=== PATIENT | female | born 1955 | race Caucasian/White ===

== ENCOUNTER 2016-12-01 07:20 | Inpatient (IN) | payer OTHER ==
[~2016-12-01] VITALS: Ht 154.9 cm; Wt 65.4 kg
--- NOTE | ~2016-12-01 | ER ---
PATIENT'S NAME: KACIE [facility] AGE: 61 Y [address] ROOM: [place] [address] LOCATION: GPCU ADMIT DATE: 12/01/2016 ER/Outpatient Report DISCHARGE DATE: FAMILY PHYSICIAN: Sylvia Rosenthal MD ATTENDING PHYSICIAN: YG PEREZ TIME OF ARRIVAL: 0720 hours. TIME OF EVALUATION: 0720 hours. CHIEF COMPLAINT: Chest pain. HISTORY OF PRESENT ILLNESS: The patient is a 61-year-old female who presents to the emergency department today with a chief complaint of chest pain. She reports it started at 6:30 this morning. She does have a history of stenting x2 in 2010 and has a history of high blood pressure as well. She reports that this pain started one hour prior to arrival. It is a squeezing-type pain. It lasted about 5 minutes and resolved with nitroglycerin. She also had one other short episode on her way to work. She does report it radiates to the back, but there is no ripping or tearing sensation. It is not sudden onset. No nausea or vomiting. No diaphoresis. No lightheadedness. No fevers or chills. She reports she had a heart cath in June which had a small blockage. PAST MEDICAL HISTORY: Hypertension, coronary artery disease, dyslipidemia, gastroesophageal reflux disease, depression, anxiety, insomnia, glucose intolerance, overactive bladder, and osteopenia. PAST SURGICAL HISTORY: Hysterectomy and cardiac stents. SOCIAL HISTORY: The patient quit smoking 5 months ago. Drinks alcohol 2 times a week. Denies any illicit drug use. ALLERGIES: NO KNOWN DRUG ALLERGIES. MEDICATIONS: Please see list. PATIENT'S NAME: KACIE [facility] AGE: 61 Y [address] ROOM: [place] [address] LOCATION: GPCU ADMIT DATE: 12/01/2016 ER/Outpatient Report DISCHARGE DATE: FAMILY PHYSICIAN: Sylvia Rosenthal MD ATTENDING PHYSICIAN: YG PEREZ REVIEW OF SYSTEMS: All systems are reviewed by myself and are negative with the exception of those discussed in the HPI and Past Medical History. PHYSICAL EXAMINATION: VITAL SIGNS: Weight 65.9 kg. Blood pressure 149/78, pulse 66, respiratory rate 16, temperature 97.5, and oxygen saturation 98% on room air. GENERAL: The patient is a 61-year-old female who appears stated age, in no acute distress. HEENT: Normocephalic, atraumatic. NECK: Supple. There is no nuchal rigidity. CARDIOVASCULAR: Regular rate and rhythm. LUNGS: Clear to auscultation bilaterally. No wheezes, rales, or rhonchi. ABDOMEN: Soft, nontender, and nondistended. No rebound, rigidity, or guarding. MUSCULOSKELETAL: The patient moves all 4 extremities. SKIN: Warm and dry. LABORATORY AND X-RAY DATA: Labs and x-rays are obtained. CBC is normal. EKG is obtained, is interpreted by myself at 0732 hours, shows sinus rhythm with a rate of 67, normal axis, normal interval. No ST elevation, ST depression, or T-wave inversions. Coags are normal. CMP is normal. Magnesium is normal. Cardiac enzymes are normal. Chest x-ray shows no acute process. Her heart catheterization from 2016 is reviewed by myself and did show mid focal 70% stenosis of LAD. Left circ was negative. RCA showed 20% to 30% distal to her previous stent. IMPRESSION: 1. Unstable angina. 2. Initial visit. EMERGENCY DEPARTMENT COURSE: The patient was brought back to the examination room. Seen and evaluated by myself. IV was established. Laboratory analysis and imaging were obtained as described above. The patient was given 324 mg of baby aspirin orally. She is chest pain-free now. I have discussed the results with the patient. We have contacted Dr. Perez with the Hospitalist Service. He does agree to accept the patient for further evaluation, treatment, and management. DISPOSITION: The patient is admitted under the care of the Hospitalist Service in stable condition. PATIENT'S NAME: KARLA HESTER [facility] AGE: 61 Y [address] ROOM: [place] [address] [facility]: 12/01/2016 ER/Outpatient Report DISCHARGE DATE: FAMILY PHYSICIAN: Sylvia Rosenthal MD ATTENDING PHYSICIAN: YG PEREZ DO KOLBY COOK/modl /[id number] d: 12/01/16 1349 t: 12/01/16 1640, OUTPATIENT REPORT
--- NOTE | ~2016-12-01 | DS ---
[facility] AGE[facility] 61 Y [address] ROOM: [place] [address] LOCATION: GPCU ADMIT DATE: 12/01/2016 Discharge Summary DISCHARGE DATE: 12/02/2016 FAMILY PHYSICIAN: Sylvia Rosenthal MD ATTENDING PHYSICIAN: Sahil Perez PRINCIPAL DIAGNOSES: 1. Unstable angina. 2. Coronary artery disease. 3. Essential hypertension. 4. Hyperlipidemia. 5. History of smoking. 6. Anxiety and depression. HOSPITAL COURSE: Please reference any of the admitting data to the history and physical as dictated by Dr. Dolores Jose. This 61-year-old female with a history of coronary artery disease, status post PCI, presented with chest pain. She was admitted into the Progressive Care Unit. She was given her aspirin, beta-flako, and statin medicines. Initial EKG showed normal sinus rhythm with no obvious ST-changes concerning for ischemia. Laboratory findings showed a negative set of cardiac enzymes. Cardiology consultation was obtained and was elected to undergo a heart catheterization. After risks and benefits were obtained and consents signed, the patient underwent a left and right coronary angiography via the groin approach. Findings included one- vessel coronary artery disease with a patent RCA stent. There was also a known mid-LAD lesion documented as a focal 40 stenosis, which looked comparatively better with previous angiography. Hemostasis was successfully obtained and recovered back in her room per the post heart catheterization orders without any complications. The patient was observed overnight without any further complications mobilizes any further symptoms of angina. Hemodynamically was stable and status at discharge was good. CONSULTING PROVIDERS: Dr. Jordan, [facility] Cardiology. PROCEDURE: A left and right heart catheterization via right groin approach by Dr. Jordan on December 01. PERTINENT LAB FINDINGS: 1. Initial set of cardiac enzymes were negative. 2. A CBC on 12/01/2016 showed a hemoglobin of 13.3, hematocrit of 40.2, and a platelet count of 257. White blood cells are 9.4. 3. Chemistry panel, follow up on 12/02/2016, showed a glucose of 101, BUN 15, creatinine 0.8, sodium 140, potassium of 4.2, chloride 108, CO2 of [facility] AGE: 61 Y [address] ROOM: [id number] [place] [id number] LOCATION: GPCU ADMIT DATE: 12/01/2016 Discharge Summary DISCHARGE DATE: 12/02/2016 FAMILY PHYSICIAN: Sylvia Rosenthal MD ATTENDING PHYSICIAN: Sahil Perez 24, and calcium of 8.6. Liver functions were within normal limits. A fasting lipid on 12/02/2016 showed a cholesterol of 187, triglycerides of 191, HDL 56, and LDL of 93. DISCHARGE MEDICATIONS: 1. Aspirin enteric-coated 81 mg p.o. everyday. 2. Atorvastatin 80 mg p.o. every night at bedtime. 3. Bupropion 300 mg p.o. everyday. 4. Calcium carbonate 1200 mg p.o. everyday. 5. Vitamin D3 2000 units p.o. everyday. 6. CoQ10 200 mg p.o. everyday. 7. Multivitamin 1 tablet p.o. everyday. 8. Celexa 20 mg p.o. everyday. 9. Imdur 60 mg p.o. everyday. 10. Metoprolol tartrate 25 mg p.o. twice daily. 11. Ranexa 500 mg p.o. everyday. 12. Protonix 40 mg p.o. everyday before breakfast. 13. Ditropan XL 10 mg p.o. everyday. 14. Chantix 1 mg p.o. twice daily. 15. Methylsulfonylmethane 1000 mg 1 tablet p.o. everyday. DISCHARGE INSTRUCTIONS: 1. The patient will be discharged to home. 2. Diet should be cardiac. 3. Activity should be groin precautions with no lifting of anything greater than 5 pounds for 1 week. There was a prescription written according to her work environment. She should maintain restrictions for 1 week following the catheterization. A return to work note was also instructed per Dr. Jordan of Cardiology. 4. The patient should follow up with Dr. Morrissey in 1 month. 5. The patient should have a followup with Dr. Sylvia Rosenthal for posthospitalization in the next 10 to 14 days. 6. The patient was given post heart catheterization education and instructions with pertinent recommendations do not lift anything greater than 5 pounds for 1 week. She was also given education on the cardiovascular benefits of smoking cessation. She has been smoke free for the last 5 months and continues to utilize Chantix as per her primary care provider. The above line of management was discussed with the patient and all questions were answered with statements of satisfaction. Total time arranging discharge was less than 30 minutes. WALTER NOVA APRN, APRN FOR DOLORES JOSE MD PATIENT'S NAME: KARLA HESTER [facility] AGE: 61 Y [address] ROOM: [place] [id number] [facility]: 12/01/2016 Discharge Summary DISCHARGE DATE: 12/02/2016 FAMILY PHYSICIAN: Sylvia Rosenthal MD ATTENDING PHYSICIAN: Sahil Perez /[id number] CC: MD Catalina Gabriel MD d: 12/03/16 0136 t: 12/06/16 1102, DISCHARGE SUMMARY
--- NOTE | ~2016-12-01 | CATH ---
Cardiac Diagnostic Report Demographics Patient Name KACIE Thompson Gender Female Date of 1955 Age 61 year(s) Patient Number [id number] Date of Study 12/01/2016 Visit Number [id number] Room Number [id number] [place] [id number] Ht 154.94 cm Wt 66 kg Referring Galo Minor MD Primary Physician Physician Performing [facility] Secondary Physician Physician Anupama RDZ Diagnostic [facility] Assisting Physician Physician Anupama RDZ Interventional Physician Email Campaign Specialist Physician Findings and Conclusions Diagnostic Findings and Conclusion 1. 1 vessel CAD - RCA stent patent. 2. Mid LAD lesion focal 40 stenosis (looks better compared with prior angiogram). Diagnostic Recommendations Continue medical treatment. Patient will be observed overnight. Patient has been instructed to not lift anything more than 5 pounds for 1 week. Aggressive medical therapy for coronary artery disease. Procedure Description The patient was brought to the diagnostic cardiac catheterization-EP laboratory in the fasting, non-sedated state. Informed consent was obtained in the written and verbal form after the risks and benefits were explained. The patient had no further questions and agreed to proceed. The planned puncture-incision site(s) were shaved and prepped with ChloraPrep and draped in the usual sterile manner. Conscious sedation, supplemental oxygen, and pain control medications were delivered by a registered nurse under physician guidance. Surface ECG rhythm, blood pressure measurement, and pulse oximetry were monitored throughout the procedure. Arterial access. The access site was infiltrated with lidocaine. The vessel was entered with the Seldinger technique. A sheath was advanced into the vessel and used for catheter placement. Selective left coronary angiography. A catheter was advanced into the left coronary vessel ostium under Fluoroscopic guidance. Contrast was injected by hand. Images were obtained in multiple projections. Selective right coronary angiography. A catheter was advanced into the right coronary vessel ostium under fluoroscopic guidance. Contrast was injected by hand. Images were obtained in multiple projections. Left heart catheterization. A catheter was advanced across the aortic valve to the left ventricle under fluoroscopic guidance. Resting hemodynamics were obtained. Arterial artery hemostasis was achieved. The patient was transferred to a regular nursing floor via cart accompanied by a nurse. The patient left the laboratory in stable condition. Diagnostic Cath Status: Urgent Procedure Procedure Type Diagnostic procedure:Angiography:, Coronary Angios w/[facility] Indications: Chest pain. The procedure was explained in detail to the patient. Risks, complications and alternative treatments were reviewed. Written consent was obtained. Medications Reviewed with Patient prior to Procedure. Angiographic Findings Dominance: Right Cardiac Arteries and Lesion Findings LMCA: Lesion on LMCA: Ostial.20% stenosis . LAD: Lesion on Mid LAD: 40% stenosis . LCx: Normal (0% Stenosis). RCA: Normal (0% Stenosis).Stent patent. Coronary Tree Procedure Data Procedure Date Date: 12/01/2016Start: 01:00 PMEnd: 01:46 PM Entry Locations - Retrograde Percutaneous access was performed through the Right Femoral artery (Primary location). A 6 Fr sheath was inserted. Hemostasis was successfully obtained using Manual Compression. Closure Comments: Pressure held to right groin by RT Funmilayo for 20 minutes.. Procedure Medications Order and Administration + + + +-------+ !Time !Medication !Dosage !Route ! + + + +-------+ !12/01/2016 01:00 PM !Fentanyl !50 mcg !I.V. ! + + + +-------+ !12/01/2016 01:01 PM !Versed !1 mg !I.V. ! + + + +-------+ !12/01/2016 01:10 PM !Oxygen !2 l/min !NC ! + + + +-------+ Devices Used - A5 Fr. BS JR 4 Diag. Catheterwas used for:Right coronary angiography. - A6 Fr. EBU 3.5 Guide Catheterwas used for:Left coronary angiography. - A5 Fr. BS Angled Pigtail Diag. Catheterwas used for:LV Pressures. Contrast Material - Isovue 38344 ml Fluoroscopy Time: Diagnostic: 3:42 minutes. Total: 3:42 minutes. Fluoroscopy Dose: Diagnostic: 356 mGy. Total: 356 mGy. Estimated Blood Loss: 10 ml. Medical History Performed Procedures and Imaging Results - No ACC stress or imaging studies were performed. Allergies - No known allergies. Risk Factors The patient risk factors include:prior PCI on 04/22/2011;peripheral arterial disease, hypertension, last creatinine: 0.8 mg/dl, creatinine clearance: 76.94 ml/min and Current/Recent(w/in 1 year) tobacco use. Admission Data Admission Date: 12/01/2016 Admission Time: 09:04 AM Admit Source: Emergency department Insurance Payors: Private health insurance. Admission Medications + +------+-------+ + + + + !Medication !Dosage!Times !Last !Last !Administered !Comments ! ! ! !Per Day!Delivery !Delivery ! ! ! ! ! ! !Date !Time ! ! ! + +------+-------+ + + + + !Aspirin ! ! ! ! !Yes ! ! !(any) ! ! ! ! ! ! ! + +------+-------+ + + + + !Statin ! ! ! ! !Yes ! ! !(any) ! ! ! ! ! ! ! + +------+-------+ + + + + !Clopidogrel! ! ! ! !Yes ! ! + +------+-------+ + + + + Clinical Evaluation Leading to Procedure - The patient's CAD presentation was assessed as: Unstable angina. - The patient's anginal syndrome during the past two weeks was assessed as: Class IV according to the [place] Cardiovascular Society Classification System (CCS). Anti-anginal medications were prescribed during the past two weeks. The medications are: Long Acting Nitrates and Ranolazine. Hemodynamics Condition: Rest O2 Consumption: Estimated: 151.54Heart Rate: 63 bpm Pressures (mmHg) +-----+ + !Site !Pressure ! +-----+ + !AO !175/80 (117) ! +-----+ + !AO !173/82 (120) ! +-----+ + !LV !175/2 ,11 ! +-----+ + !LV !171/2 ,10 ! +-----+ + !AO !168/74 (113) ! +-----+ + !LV !169/2 ,10 ! +-----+ + Valve Gradients and Areas + +---------+---------+---------+ +---------+ + !Valve !Peak !Mean !Area !Index !Flow !Source ! + +---------+---------+---------+ +---------+ + !Aortic !5 !6 ! ! ! ! ! + +---------+---------+---------+ +---------+ + !Aortic !5 !6 ! ! ! ! ! + +---------+---------+---------+ +---------+ + Shunts Oxygen Values O2 Capacity 180.88 O2 Consumption 151.54 Signatures dtt: ANUPAMA DOHERTY dtd: 12/01/16 [facility] Physician Self Edit
--- NOTE | ~2016-12-01 | CON ---
[facility]GE[facility] 61 Y [address] ROOM: [place] [address] LOCATION: GPCU ADMIT DATE: 12/01/2016 Consultation DISCHARGE DATE: FAMILY PHYSICIAN: Sylvia Rosenthal MD ATTENDING PHYSICIAN: YG PEREZ DATE OF CONSULTATION: 12/01/2016 REFERRING PHYSICIAN: ERIC DOHERTY MD REQUESTING PROVIDER: Yg Perez MD. REASON FOR CONSULTATION: Chest pain. HISTORY OF PRESENTING ILLNESS: The patient is a very pleasant, 61-year-old female, who has history of coronary artery disease. She has a 60% lesion in the mid LAD. Plan was to do an FFR in 2013, but however, they were unable to cross the LAD lesion. I did another cath in 2015 for symptoms of chest discomfort and positive stress test. At that time, FFR was negative, so medical therapy was continued. However, the patient reports she has had 3 episodes of chest discomfort in the past 24 hours. They last about 5 to 10 minutes. No associated symptoms. It is squeezing in nature, and the patient reports it is more intense. She really has not had any chest discomfort in the past several months. This is new onset and she was worried about it. The patient came into the emergency room due to concern for repeated episodes of chest discomfort as well as more intense episodes of chest pain. She does not have any shortness of breath or lightheadedness. No nausea, vomiting, diarrhea, constipation, or changes in her speech or strength sensation. She really does not have any other acute symptoms. No PND, orthopnea, or lower extremity edema. REVIEW OF SYSTEMS: All review of systems discussed with the patient. Pertinent positives and negatives as mentioned in the history of presenting illness. HOME MEDICATIONS: 1. Bupropion 300 daily. 2. Imdur 60 daily. 3. Protonix 40 daily. 4. Ranolazine 500 daily. 5. Metoprolol 25 daily. [facility] AGE: 61 Y [address] ROOM: [place] [address] LOCATION: GPCU ADMIT DATE: 12/01/2016 Consultation DISCHARGE DATE: FAMILY PHYSICIAN: Sylvia Rosenthal MD ATTENDING PHYSICIAN: YG PEREZ 6. Celexa 40 mg at bedtime. 7. Metoprolol 25 at bedtime. 8. Chantix 2 mg a day. 9. Atorvastatin 80 daily. 10. Oxybutynin 10 mg daily. 11. Aspirin 81 daily. 12. Calcium daily. 13. Multivitamins daily. 14. CoQ enzyme Q10 of 200 daily. 15. Women's vitamins and with iron daily. ALLERGIES: NO KNOWN DRUG ALLERGIES. PAST MEDICAL HISTORY: 1. Coronary artery disease, mid LAD focal 70% lesion, single vessel, being managed medically as iFR in jan 2016 not physiologically significant. 2. Hypertension. 3. Hyperlipidemia. 4. GERD. 5. Depression. 6. Anxiety. 7. Moderate carotid disease with 50% stenosis in the right ICA. PAST SURGICAL HISTORY: Total vaginal hysterectomy, bilateral salpingo-oophorectomy, anterior bladder sling repair, ganglion cysts removal, and varicose veins. SOCIAL HISTORY: The patient quit smoking. 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 She reports she has not smoked in the past 6 months. No alcohol abuse or illicit drug abuse. FAMILY HISTORY: Positive for premature coronary artery disease. PHYSICAL EXAMINATION: GENERAL: The patient is alert and oriented to time, place, and person. She is not in any apparent distress. Appropriate mood and affect. She is cooperative. VITAL SIGNS: Blood pressure 130/80, pulse 70s, respirations 14, and afebrile. HEENT: Mucous membranes moist. Eyes: No xanthelasmas. Head: Atraumatic and normocephalic. NECK: Supple. CHEST: Regular respirations. LUNGS: Clear to auscultation bilaterally. PATIENT'S NAME: KARLA MINAYA [facility] AGE: 61 Y [address] ROOM: [place] [address] [facility]: 12/01/2016 Consultation DISCHARGE DATE: FAMILY PHYSICIAN: Sylvia Rosenthal MD ATTENDING PHYSICIAN: YG PEREZ HEART: S1 and S2. Regular rate and rhythm. No murmurs, gallops, or rubs. ABDOMEN: Soft. Bowel sounds positive. EXTREMITIES: No significant lower extremity edema. NEUROLOGIC: Grossly normal. MUSCULOSKELETAL: Good range of motion. SKIN: Warm and dry. IMAGING DATA: EKG; sinus rhythm with nonspecific ST changes. Chest x-ray, no vascular congestion. No acute cardiopulmonary process. LABORATORY DATA: Sodium 140, potassium 3.8, chloride 107, CO2 of 23, BUN 15, creatinine 0.8, and glucose 114. Alkaline phosphatase 108, AST 25, and ALT 43. GFR greater than 60. LDL in January 2016 was 123. CPK 180. Troponin 0.04. CK-MB 2.3. WBC 9.4, H and H of 13.3 and 40.2, and platelets are 257. Cardiac cath in January of 2016, showed a focal 70% lesion at the trifurcation with first and second diagonal branches. Mild 20% to 30% stenosis in the RCA distal to previously placed stent. IFR of LAD was 0.97 and lesion was deemed not physiologically significant, and medical therapy was continued. IMPRESSION: 1. Unstable angina. Single vessel mid LAD lesion focal 70%, iFR not significant in january 2016 on cath. 2. Hypertension. 3. Hyperlipidemia. 4. Gastroesophageal reflux disease. PLAN: At this time, given the recurrent episodes of new onset chest discomfort which are more frequent as well as more intense than she had 6 months ago, I do think at this point, knowing that this is a 70% lesion in the mid LAD. The best option is to proceed with cardiac cath and likely an intervention. Of note, she did have a stress test also in the past that did show evidence of ischemia in the LAD territory as well. The patient is on guideline-directed medical therapy and on 3 antianginals and is having new onset chest discomfort which is pressure in nature and resolved with sublingual nitroglycerin. This is concerning for obstructive CAD and ischemic chest discomforts, so at this time, we will proceed with cardiac cath and possible intervention. The patient is agreeable with plan. Risks and benefits discussed with the patient and she understands. Risk of bleed, bruise, and infection one in 100 cases, risk of heart attack, , stroke, NC, CVA, EMILY, worsening renal function including need for dialysis is less than 1 in 1000 cases. PATIENT'S NAME: KARLA MINAYA [facility] AGE: 61 Y [address] ROOM: [place] [address] LOCATION: GPCU ADMIT DATE: 12/01/2016 Consultation DISCHARGE DATE: FAMILY PHYSICIAN: Sylvia Rosenthal MD ATTENDING PHYSICIAN: YG PEREZ Encouraged the patient to not smoke. Continue aggressive medical therapy and lifestyle modification. LDL goal is less than 70 and systolic blood pressure goal less than 130. Thank you very much for allowing us to participate in the care of Ms. Minaya. ERIC DOHERTY MD AT/modl /[id number] d: 12/01/16 1209 t: 12/02/16 1056, CONSULTATION REPORT
--- NOTE | ~2016-12-01 | HP ---
PATIENT'S NAME: [facility] AGE: 61 Y [address] ROOM: [place] [id number] LOCATION: GPCU ADMIT DATE: 12/01/2016 History & Physical DISCHARGE DATE: FAMILY PHYSICIAN: Sylvia Rosenthal MD ATTENDING PHYSICIAN: YG YI DATE OF SERVICE: CHIEF COMPLAINT: Chest pain. HISTORY OF PRESENT ILLNESS: The patient is a 61-year-old female with past medical history of CAD, status post PCI, who presents here with chest pain. The patient reports that she woke up around 6:30 a.m. and experienced chest pain which she states was substernal in location and pressure-like. The patient reports that the pain lasted few minutes and the intensity was less. The patient took nitroglycerin which improved symptoms. The patient reports that she again experienced chest pain while driving to work. The patient once again took nitroglycerin with improvement of symptoms. The patient then decided to come to emergency department for further evaluation. On initial workup, initial EKG and troponin were unremarkable. Of note, the patient has a history of coronary artery disease, initial stent placement in RCA with bare metal stent and again with repeat drug-eluting stent placement in the past. The patient has had recent catheterization in last year, which showed LAD lesion with 70% with normal IFR. This did not require any intervention at that point. History of hypertension, CAD, hyperlipidemia. SURGICAL HISTORY: 1. PCI. 2. Cholecystectomy. 3. Hysterectomy. FAMILY HISTORY: Mother has a history of rheumatic heart disease status post valve replacement and also history of CAD. Brother has a history of CAD. SOCIAL HISTORY: The patient works in our hospital as housekeeping. Reports history of smoking, but have stopped smoking in the past five months. She reports that she is a social drinker. MEDICATIONS: PATIENT'S NAME: [facility] AGE: 61 Y [address] ROOM: [id number] [place] [id number] LOCATION: GPCU ADMIT DATE: 12/01/2016 History & Physical DISCHARGE DATE: FAMILY PHYSICIAN: Sylvia Rosenthal MD ATTENDING PHYSICIAN: YG YI Currently being reconciled. REVIEW OF SYSTEMS: All systems have been reviewed and negative except what I mentioned in the HPI. Sodium 140, potassium 3.8, chloride of 107, CO2 of 23, glucose of 114, and BUN of 15, creatinine 0.8. Initial troponin is negative. CK-MB 2.3. CPK 180. White blood cell count of 9.4, hemoglobin 13.3, hematocrit 40.2, and platelet of 257. INR of 1. EKG, has normal sinus rhythm. No obvious ST changes concerning for ischemia. ASSESSMENT AND PLAN: The patient is a 61-year-old female who presents with past medical history of coronary artery disease, status post PCI, with known lesion of 70% on the LAD with normal IFR, who presents here with typical chest pain. 1. Chest pain. The patient is scheduled for coronary angiograms today. The patient has already received aspirin in the emergency department. We will continue Lipitor and beta flako. We will await for coronary angiogram results. 2. History of CAD, see problem #1. 3. Hypertension, stable. To continue medication. 4. Hyperlipidemia, on Lipitor. PHYSICAL EXAMINATION: VITAL SIGNS: Temperature 97.6, BP 142/67, respiratory rate 20, and pulse of 65. HEAD: Normocephalic, atraumatic. EYES: Extraocular muscle intact. No discharge. NOSE: No nasal discharge. EARS: No ear discharge. ORAL CAVITY: Moist oral cavity. HEART: Regular rate and rhythm. No murmurs, rubs, or gallops. LUNGS: Clear to auscultation bilaterally. ABDOMEN: Soft, nontender, and nondistended. Bowel sounds present. SKIN: Warm to touch. EXTREMITIES: No edema. Distal pulses present and equal. MUSCULOSKELETAL: Range of motion intact. No obvious joint effusion. CLAIMS SERVICE ADJUSTOR: The patient alert and oriented. Motor and sensory grossly intact. Greater than 40 minutes was spent on patient care. Assessment and plan was discussed with the patient and family member. Code status discussed with family on admission, and the patient's code status is full code. PATIENT'S NAME: [facility]LA [facility] AGE: 61 Y [address] ROOM: [id number] [place], [place] [id number] [facility] ADMIT DATE: 12/01/2016 History & Physical DISCHARGE DATE: FAMILY PHYSICIAN: Sylvia Rosenthal MD ATTENDING PHYSICIAN: GEBREMICHAEL,BARKOT MD Ulises MEMBRENO /[id number] D: [id number] T: [id number] HISTORY & PHYSICAL
[~2016-12-01 07:20] MED LIST: ASPIRIN (CHILDR81 MG PO; ATORVASTATIN CA80 MG PO; C-Q 10 PO; CALCIUM CARBON600 MG PO; CELEXA40 MG PO; CHEWABLE MULTIV1 TAB PO; DITROPAN XL10 MG PO; ISOSORBIDE MONO60 MG PO; LOPRESSOR25 MG PO; MSM1000 MG; MSM1000 MG PO; PLAVIX75 MG PO; PROTONIX40 MG PO; RANEXA ER500 MG PO; VITAMIN D-32000 UNI1 PO; WELLBUTRIN XL300 M2 PO
[2016-12-01 07:42] LABS: BASOPHIL # 0.1 K/uL (0.0-0.2); BASOPHIL % 0.5 %; EOSINOPHIL # 0.3 K/uL (0.0-0.5); EOSINOPHIL % 2.6 %; HEMATOCRIT 40.2 % (33.0-46.0); HEMOGLOBIN 13.3 g/dL (10.0-15.0); IMMATURE GRANULOCYTE % 0.4 %; LYMPHOCYTE # 2.1 K/uL (0.8-4.0); LYMPHOCYTE % 22.6 %; MCH 29.7 pg (27.0-34.0); MCHC 33.1 gm/dL (32.0-36.5); MCV 89.7 fl (83.0-98.0); MONOCYTE # 0.7 K/uL (0.0-1.0); MONOCYTE % 7.7 %; NEUTROPHIL # (ANC) 6.2 K/uL (1.8-7.8); NEUTROPHIL % 66.2 %; NRBC % 0 /100WBC (0-0.00); PLATELET COUNT 257 K/uL (150-450); RBC 4.48 M/uL (3.50-5.50); RDW-CV 13.5 % (11.9-14.6); WBC 9.4 K/uL (4.0-11.0)
[2016-12-01 07:49] LABS: PROTIME 10.5 SECONDS (9.8-11.4); PTT 24 SECONDS (25-32)
[2016-12-01 08:00] LABS: ALBUMIN 3.8 gm/dL (3.5-5.0); ALK PHOS 108 IU/L (33-138); ALT 43 IU/L (12-78); ANION GAP 13.8 (10.0-19.0); AST 25 IU/L (10-40); BLOOD UREA NITROGEN 15 mg/dL (6-24); CALCIUM 8.4 mg/dL (8.5-10.5); CHLORIDE 107 mMol/L (96-110); CO2 23 mMol/L (22-32); CPK 180 IU/L (21-215); CREATININE 0.8 mg/dL (0.5-1.1); MAGNESIUM 1.8 mg/dL (1.8-2.6); POTASSIUM 3.8 mMol/L (3.7-5.1); SODIUM 140 mMol/L (135-145); TOTAL BILIRUBIN 0.4 mg/dL (0.0-1.5); TOTAL PROTEIN 7.4 g/dL (6.0-8.4)
[2016-12-01] MEDS ORDERED: MULTIPLE VITAM1 EAC2 PO (11:08)
[2016-12-01] MEDS ORDERED: CHANTIX1 MG PO (11:09)
[2016-12-01] MEDS ORDERED: TOPROL XL25 MG PO (11:09)
[2016-12-01] MEDS ORDERED: MSM1000 MG PO (11:10)
[2016-12-01] MEDS ORDERED: LOPRESSOR25 MG PO (11:17)
--- NOTE | 2016-12-01 16:11 | NUR ---
Significant Event: PT ADMIT FOR CP, HEART CATH TODAY, NO INTERVENTION. PT BACK IN ROOM AT 1400, R)GROIN MANUAL HOLD, C/D/I. NS INFUSE 500MLS. PT ALERT/ORIENTED BEDREST TO 1830, STANDBY. NO C/O PAIN. FAMILY HERE MOST OF DAY WITH HER. Follow up:
--- NOTE | 2016-12-02 03:16 | NUR ---
Significant Event: a/o X3. Afebrile. Denies pain. VSS on RA. SBP 110-140s. HR 60s. Rt groin c/d/i. Ambulated in don x1. NS fluids discontinued. Patient slept most of shift. Follow up: Plan for discharge today.
[2016-12-02 07:20] LABS: ANION GAP 12.2 (10.0-19.0); CALCIUM 8.6 mg/dL (8.5-10.5); CREATININE 0.8 mg/dL (0.5-1.1); POTASSIUM 4.2 mMol/L (3.7-5.1)
[2016-12-02] MEDS ORDERED: NITROSTAT0.4 MG SL (08:49)
--- NOTE | 2016-12-02 16:31 | NUR ---
d-dr whitfield dc i-nurse did teaching on all meds, rx given, info given on cath/groin precautions, iv dcd intact, R)groin ok bandaid c/d/i. r-pt states all understanding, pt up arian barba p-ta took pt out per wc to family car
== END 2016-12-02 15:10 | disposition disaster alternative care site (69) | DRG 287 ==
LOC: GMED 07:20 → GPCU 09:04
PROVIDERS: Emergency Medicine; Internal Medicine Interventional Cardiology; ADMIT Internal Medicine
PROC: 4A023N7 Measurement of Cardiac Sampling and Pressure, Left Heart, Percutaneous Approach (ICD-10-PCS; principal; 2016-12-01)
PROC: B211YZZ Fluoroscopy of Multiple Coronary Arteries using Other Contrast (ICD-10-PCS; principal; 2016-12-01)
DX: I25.110 Atherosclerotic heart disease of native coronary artery with unstable angina pectoris (principal); I10 Essential (primary) hypertension; E78.5 Hyperlipidemia, unspecified; Z87.891 Personal history of nicotine dependence; F41.9 Anxiety disorder, unspecified; F32.9 Major depressive disorder, single episode, unspecified
CPT/HCPCS: C1769; C1887; J1644; J2250; J3010; J7030

== ENCOUNTER → 2016-12-29 | Outpatient (CLI) | payer OTHER ==
[~2016-12-29] MED LIST changes: +CHANTIX1 MG PO; +MULTIPLE VITAM1 EAC2 PO; +NITROSTAT0.4 MG SL; +TOPROL XL25 MG PO
[2016-12-29 17:06] LABS: CALCIUM 8.8 mg/dL (8.5-10.5)
== END ==
LOC: LNHI 16:48
PROVIDERS: Internal Medicine Interventional Cardiology
DX: I25.10 Atherosclerotic heart disease of native coronary artery without angina pectoris (principal)